=== PATIENT | male | born 1990 | race Caucasian/White ===

== ENCOUNTER 2025-05-17 10:56 | Outpatient (REF) | payer MEDICAID, SELFPAY ==
--- OUTSIDE RECORDS SUMMARY | 2025-05-17 10:40 | XMS_ITS | Encounter Summary ---
Author Organization [employer] Address [address] [facility] 7t [place] [address] Care Team Providers Care Prefinish Operator Name Role Phone Daisy Holland MD Primary Care Provider [phone]- [phone] Reason for Visit * Reason Comments Out Meds PLASTIC PROCESS TECHNICIAN Encounter Details Date Type Department Care Team ([facility] st Contact Info) Description 05/17/2025 10:40 AM EST Office Visit [facility] [address] [place], [place] [phone] Daisy Holland MD [address] [place], [place] [phone] PTSD (post-traumatic stress disorder) (Primary Dx); Recurrent major depressive disorder, in partial remission (CMS/HCC); Anxiety; Schizophrenia, unspecified type (HCC); Bipolar disorder in partial remission, most recent episode unspecified type (CMS/HCC); Opioid use disorder; Gastroesophageal reflux disease without esophagitis; Other migraine without status migrainosus, not intractable; Routine screening for STI (sexually transmitted infection); Tobacco use disorder; History of migraine headaches; Family hx of colon cancer; Other specified health status Social History Tobacco Use Types Packs/Day Years Used Date Smoking Tobacco: Every Day Cigarettes Smokeless Tobacco: Never Tobacco Cessation:Ready to Q uit: Not Asked; Counseling Given: Not Answered Alcohol Use Standard Drinks/Week Comments Never 0 (1 standard drink = 0.6 oz pur e alcohol) Sex and Gender Information Value Date Recorded Sex Assigned at Male 05/13/2022 10:14 AM EDT Legal Sex Male 10:14 AM EDT Gender Identity Male 05/17/2025 9:40 AM EST Sexual Orientation Straight 05/17/2025 9: 40 AM EST documented as of this encounter Last Filed Vital Signs Vital Sign Reading Time Taken Comments Blood Pressure 134/87 05/17/2025 10:10 AM EST Pulse 96 05/17/2025 10:10 AM EST Temperature 37.2 C (98.9 F) 05/17/2025 10:10 AM EST Respiratory Rate 20 05/17/2025 10:10 AM EST Oxygen Saturation 98% 05/17/2025 10:10 AM EST Inhaled Oxygen Concentration - - Weight 104 kg (230 lb) 05/17/2025 10:10 AM EST Height - - Body Mass Index - - documented in this encounter Progress Notes * Daisy Holland MD - 05/17/2025 10:40 AM EST Subjective Samira Luther, 34 year old man who was recently released from incarceration and needs to establishcare. Opioid Use Disorder - History of opioid use disorder - Currently enrolled in methadone program at [facility] in [place] on [address] - Staying at a sober home, [place] PTSD, Depression, Anxiety, Bipolar Disorder, Schizophrenia - History of PTSD, depression, anxiety, bipolar disorder, and schizophrenia - Receiving therapy at [facility] - No psychiatrist yet - Stable on current meds which will be prescribed by me -We discussed trying to cut down on vistaril as he is on 150mg nightly,he is open to trying this Gastroesophageal Reflux Disease (GERD) - History of GERD - Experiences heartburn - Famotidine taken nightly for heartburn - Has not taken famotidine for 3 days prior to encounter Constipation - Reports infrequent bowel movements but able to have bowel movements Tobacco Use - Smokes approximately 20 cigarettes daily - Stopped smoking while incarcerated, resumed upon release Substance Use - Denies current alcohol use - Denies current recreational drug use - History of past recreational drug use Sexual Activity - Denies current sexual partners Objective Blood pressure 134/87, pulse 96, temperature 98.9 ??F (37.2 ??C), temperature source Oral, resp. rate 20, weight 230 lb (104 kg), SpO2 98%. PTSD (post-traumatic stress disorder): - Diagnosis of PTSD confirmed. - Continue current psychiatric medications. Maintain engagement with therapist at [facility]. Recommended to be placed on waiting list for psychiatrist. Recurrent major depressive disorder, in partial remission (CMS/HCC): - Diagnosis of major depressive disorder in partial remission confirmed. - Continue Remeron 7.5 mg at night. Continue engagement with therapist. Recommended to be placed onwaiting list for psychiatrist. Anxiety: - Diagnosis of anxiety confirmed. - Continue Vistaril 150 mg nightly as needed, with option to reduce dose if tolerated. Continue engagement with therapist. Recommended to be placed on waiting list for psychiatrist. Schizophrenia, unspecified type (HCC): - Diagnosis of schizophrenia confirmed. - Continue Zyprexa 10 mg daily and 2.5 mg nightly. Recommended to take Zyprexa during the day for improved tolerability. Continue engagement with therapist. Recommended to be placed on waiting list for psychiatrist. Bipolar disorder in partial remission, most recent episode unspecified type (CMS/HCC): - Diagnosis of bipolar disorder in partial remission confirmed. - Continue current psychiatric medications as prescribed. Continue engagement with therapist. Recommended to be placed on waiting list for psychiatrist. Opioid use disorder: - Opioid use disorder managed with methadone program at [facility]. - Continue methadone maintenance therapy at current dose through [facility] program. Gastroesophageal reflux disease without esophagitis: - GERD confirmed by patient report of heartburn. - Prescribed famotidine 40 mg nightly; advised to wean off if possible but continue nightly dosing as needed. Other migraine without status migrainosus, not intractable: - Migraine diagnosis confirmed. - Prescribed ibuprofen 600 mg for migraine management; instructed to take only with food due to gastrointestinal risk. Routine screening for STI (sexually transmitted infection): - Indicated for routine STI screening; no current sexual partners reported. - Ordered laboratory tests including gonorrhea, chlamydia, hepatitis C, HIV, syphilis; urine collection for chlamydia testing. Tobacco use disorder: - Tobacco use disorder confirmed; currently smoking approximately 20 cigarettes daily; not ready toquit at this time. - Discussed readiness to quit; no cessation intervention initiated at this visit. This note was drafted using Ambient (AI) technology. The patient/patient's guardian has been informed and has consented to the use of this technology: No documented in this encounter Plan of Treatment Upcoming Encounters Date Type Department Care Team (Late st Contact Info) Description 06/17/2025 9:30 AM EST Office Visit [facility] [address] [place] [phone] Daisy Holland MD [address] [place] [address] Scheduled Orders Name Type Priority Associated Diagnoses Orde r Schedule Hepatic Function Panel Lab Routine Schizophrenia, unspecified type (HCC) Expected: 05/17/2025 (Approximate), Expires: 05/17/2026 Lipid Panel, Standard Lab Routine Schizophrenia, unspecified type (HCC) Expected: 05/17/2025 (Approximate), Expires: 05/17/2026 Basic Metabolic Panel Lab Routine Schizophrenia, unspecified type (HCC) Expected: 05/17/2025 (Approximate), Expires: 05/17/2026 Hepatitis C Antibody with Reflex to HCV, RNA, Quantitative, Real-Time PCR Lab Routine Routine screening for STI (sexually transmitted infection) Expected: 05/17/2025 (Approximate), Expires: 05/17/2026 HIV-1/2 Antigen and Antibodies, Fourth Generation, with Reflexes Lab Routine Routine screening for STI (sexually transmitted infection) Expected: 05/17/2025 (Approximate), Expires: 05/17/2026 Syphilis Screen Lab Routine Routine screening for STI (sexually transmitted infection) Expected: 05/17/2025 (Approximate), Expires: 05/17/2026 Chlamydia/N. Gonorrhoeae, PCR, Urine Lab Routine Routine screening for STI (sexually transmitted infection) Ordered: 05/17/2025 documented as of this encounter Visit Diagnoses Diagnosis PTSD (post-traumatic stress disorder)- Primary Posttraumatic stress disorder Recurrent major depressive disorder, in partial remission (CMS/HCC) Anxiety Anxiety state, unspecified Schizophrenia, unspecified type (HCC) Bipolar disorder in partial remission, most recent episode unspecified type (CMS/HCC) Opioid use disorder Gastroesophageal reflux disease without esophagitis Esophageal reflux Other migraine without status migrainosus, not intractable Routine screening for STI (sexually transmitted infection) Screening examination for venereal disease Tobacco use disorder History of migraine headaches Family hx of colon cancer Family history of malignant neoplasm of gastrointestinal tract Other specified health status documented in this encounter Care Teams Prefinish Operator Relationship Specialty Start Date End Date Daisy Holland MD [address] [place] [phone] PCP - General Family Medicine 05/17/25 documented as of this encounter
--- OUTSIDE RECORDS SUMMARY | 2025-05-17 13:20 | XMS_ITS | Encounter Summary ---
Author Organization [employer] [facility] Address 75 [facility] 7t [place] [address] Care Team Providers Care Interventional Pain Physician Name Role Phone Unavailable Primary Care Provider Unavailabl e Reason for Visit * Reason Comments RC Recovery Supports Encounter Details Date Type Department Care Team (Late st Contact Info) Description 05/16/2025 Patient Outreach [facility] [address] [place] [address] [phone] Avery Duran Recovery Supports Social History Tobacco Use Types Packs/Day Years Used Date Smoking Tobacco: Never Assessed Sex and Gender Information Value Date Recorded Sex Assigned at Male 05/13/2022 10:14 AM EDT Legal Sex Male 10:14 AM EDT Gender Identity Male 05/17/2025 9:40 AM EST Sexual Orientation Straight 05/17/2025 9: 40 AM EST documented as of this encounter Progress Notes * Avery Duran - 05/16/2025 10:54 AM EST I met with Samira today. Setting: in person at [facility] Recovery Wellness Goals worked on: Social Stability Action taken/next steps: Offered person centered recovery support and Helped obtain ID Additional comments: The kids activities coach connected with the participant to assist in obtaining a state ID. Avery Duran documented in this encounter Plan of Treatment Upcoming Encounters Date Type Department Care Team (Late st Contact Info) Description 06/17/2025 9:30 AM EST Office Visit [facility] [address] [place] [phone] Daisy Holland MD [address] [place], [place] [phone] documented as of this encounter Visit Diagnoses Not on filedocumented in this encounter
--- OUTSIDE RECORDS SUMMARY | 2025-05-17 13:20 | XMS_ITS | Encounter Summary ---
Author Organization [facility] Address [address] [facility] 7t [place] [address] Care Team Providers Care Herpetology Teacher Name Role Phone Unavailable Primary Care Provider Unavailabl e Reason for Visit * Reason Comments RC Recovery Supports Encounter Details Date Type Department Care Team (Late st Contact Info) Description 05/16/2025 Patient Outreach [facility] [address] [place] [address] [phone] Kerwin Ramires Recovery Supports Social History Tobacco Use Types Packs/Day Years Used Date Smoking Tobacco: Never Assessed Sex and Gender Information Value Date Recorded Sex Assigned at Male 05/13/2022 10:14 AM EDT Legal Sex Male 10:14 AM EDT Gender Identity Male 05/17/2025 9:40 AM EST Sexual Orientation Straight 05/17/2025 9: 40 AM EST documented as of this encounter Progress Notes * Kerwin Ramires - 05/16/2025 2:24 PM EST I met with Samira today. Setting: in person at [facility] Recovery Wellness Goals worked on: Physical Health/Mental Health and Social Stability Action taken/next steps: Offered person centered recovery support Additional comments: Kerwin Ramires documented in this encounter Plan of Treatment Upcoming Encounters Date Type Department Care Team (Late st Contact Info) Description 06/17/2025 9:30 AM EST Office Visit [facility] [address] [place] [address] [phone] Daisy Holland MD [address] [place] [address] [phone] documented as of this encounter Visit Diagnoses Not on filedocumented in this encounter
--- OUTSIDE RECORDS SUMMARY | 2025-05-17 13:21 | XMS_ITS | Clinical Summary ---
Author Organization [employer] Address [address] [facility] 7t [place] [address] Care Team Providers Care Packager Or Packer And Weigher Name Role Phone Daisy Holland MD Primary Care Provider [phone]- [phone] Allergies No known active allergies Medications methadone (Dolophine) 10 MG tabletIndication s:Opioid use disorder Take 80 mg by mouth. Active prazosin (Minipress) 1 MG capsuleIndicatio ns:Recurrent major depressive disorder, in partial remission (CMS/HCC) Take 3 capsules (3 mg) by mouth at bedtime. 90 capsule 2 5 05/17/20 26 Active famotidine (Pepcid) 40 MG tabletIndication s:Gastroesophage al reflux disease without esophagitis Take 1 tablet (40 mg) by mouth in the evening. 30 tablet 2 5 05/17/20 26 Active OLANZapine (ZyPREXA) 10 MG tabletIndication s:Recurrent major depressive disorder, in partial remission (CMS/HCC) Take 1 tablet (10 mg) by mouth Once per day. Take with 2.5mg dose for total dose of 12.5 30 tablet 11 5 05/17/20 26 Active OLANZapine (ZyPREXA) 2.5 MG tabletIndication s:Recurrent major depressive disorder, in partial remission (CMS/HCC) Take 1 tablet (2.5 mg) by mouth Once per day. Take with 10mg dose 30 tablet 11 5 05/17/20 26 Active mirtazapine (Remeron) 7.5 MG tabletIndication s:Recurrent major depressive disorder, in partial remission (CMS/HCC) Take 1 tablet (7.5 mg) by mouth at bedtime. 30 tablet 2 5 Active hydrOXYzine pamoate (Vistaril) 50 MG capsuleIndicatio ns:Recurrent major depressive disorder, in partial remission (CMS/HCC) Take 3 capsules (150 mg) by mouth if needed at bedtime for itching for up to 10 days. 90 capsule 5 05/27/20 25 Active ibuprofen 600 MG tabletIndication s:Other migraine without status migrainosus, not intractable Take 1 tablet (600 mg) by mouth every 8 (eight) hours if needed for moderate pain or fever. 30 tablet 5 06/16/20 25 Active Active Problems Problem Noted Date Diagnosed Date PTSD (post-traumatic stress disorder) 05/17/2025 Depression 05/17/2025 Anxiety 05/17/2025 Schizophrenia 05/17/2025 Bipolar disorder in partial remission 05/17/2025 Opioid use disorder 05/17/2025 Gastroesophageal reflux disease without esophagi tis 05/17/2025 Tobacco use disorder 05/17/2025 Overview (05/17/2025): -Cigg/day: 20 -Age started: 14 -Total years smokin -Pack year history: 20 Encouraged smoking cessation resources such as pharmacomtherapy, [facility] smoking cessation group, and [facility] pharmacy smoking cessation clinic Discussed USPSTF recommends annual lung cancer screening with low dose CT in people who meet the following criteria: -ages 50 to 80 years. -have a 20 pack-year smoking history. -currently smoke cigarettes or quit within the past 15 years. -LDCT: due at age 50 if has not quit in 15 years History of migraine headaches 05/17/2025 Family hx of colon cancer 05/17/2025 Other specified health status 05/17/2025 Overview (05/17/2025): -next comprehensive annual evaluation due after -eye care facilitated by [facility] encouraged to call -dental home is encouraged -sandra care proxy Encounters Date Type Department Care Team Description 05/17/2025 10:40 AM EST Office Visit [facility] [address] [place] [phone] Daisy Holland MD PTSD (post-traumatic stress disorder) (Primary Dx); Recurrent [...] of colon cancer; Other specified health status 05/17/2025 Travel 05/16/2025 Patient Outreach [facility] [address] [place] [address] [phone] Kerwin Ramires Recovery Supports 05/16/2025 Patient Outreach [facility] [address] [place] [phone] Avery Duran Recovery Supports from Last 3 Months Family History Medical History Relation Name Comments Colon cancer Father Breast cancer Mother Relation Name Status Comments Father Mother Social History Tobacco Use Types Packs/Day Years [...] Orientation Straight 05/17/2025 9: 40 AM EST Last Filed Vital Signs Vital Sign Reading [...] - - Body Mass Index - - Plan of Treatment Upcoming Encounters Date Type Department Care Team (Late st Contact Info) Description 06/17/2025 9:30 AM EST Office Visit [facility] [address] [place] [phone] Daisy Holland MD [address] [place] [address] [phone] Health Maintenance Due Date Last Done Comments Depression Screening 1990 HIV Screening 1990 Lipid Panel 1990 SDOH Screening 1990 Disability Screening 1990 Alcohol/Substance Use Screening 2002 Family Planning (PISQ) 2005 HPV Vaccines (1 - Male 3-dos e series) 2005 Hepatitis C Screening 2008 Hepatitis B Vaccines (1 of 3 - 19+ 3-dose series) 2009 Pneumococcal Vaccine: Pediatrics (0 to 5 Years) and At-Risk Patients (6 to 49) Years (1 of 2 - PCV) 2009 DTaP/Tdap/Td Vaccines (2 - T d or Tdap) 12/02/2023 12/01/2013, 12/21/2012 COVID-19 Vaccine (3 - 2024-2 6 season) 2025 09/01/2020, 08/03/2020 Influenza Vaccine (#1) 2025 5, 07/21/2012 Tobacco Screening 05/17/2026 05/17/2025 Zoster Vaccines (1 of 2) 2040 RSV Patients and Patients Aged 60 years or older (1 - 1-dose 75+ series) 2065 Hepatitis A Vaccines Aged Out 12/01/2013, 12/21/2012 No longer eligible based on patient's age to complete this topic HIB Vaccines Aged Out No longer eligi ble based on patient's age to complete this topic IPV Vaccines Aged Out No longer eligi ble based on patient's age to complete this topic Meningococcal B Vaccine Aged Out No l onger eligible based on patient's age to complete this topic Meningococcal Vaccine Aged Out No kate tomer eligible based on patient's age to complete this topic RSV under 20 months Aged Out No longe r eligible based on patient's age to complete this topic Rotavirus Vaccines Aged Out No longer eligible based on patient's age to complete this topic [place] [place] [address] [id number] Care Teams Packager Or Packer And Weigher Relationship Specialty Start Date End Date [place], MD Daisy [address] [place] [phone] PCP - General Family Medicine 05/17/25
--- OUTSIDE RECORDS SUMMARY | 2025-05-17 13:21 | XMS_ITS | Encounter Summary ---
Author Organization [employer] [facility] Address [address] [facility] 7t [place] [address] Care Team Providers Care Bread Jockey Name Role Phone Daisy Holland MD Primary Care Provider +1- [phone] Encounter Details Date Type Department Care Team (Latest Contact Info) Description 05/17/2025 Travel Social History Tobacco Use Types Packs/Day Years Used Date Smoking Tobacco: Every Day Cigarettes Smokeless Tobacco: Never Alcohol Use Standard Drinks/Week Comments Never 0 (1 standard drink = 0.6 oz pur e alcohol) Sex and Gender Information Value Date Recorded Sex Assigned at Male 05/13/2022 10:14 AM EDT Legal Sex Male 10:14 AM EDT Gender Identity Male 05/17/2025 9:40 AM EST Sexual Orientation Straight 05/17/2025 9: 40 AM EST documented as of this encounter Plan of Treatment Upcoming Encounters Date Type Department Care Team (Late st Contact Info) Description 06/17/2025 9:30 AM EST Office Visit [facility] [address] [place] [address] Daisy Holland MD [address] [place] [address] documented as of this encounter Visit Diagnoses Not on filedocumented in this encounter Care Teams Bread Jockey Relationship Specialty Start Date End Date Daisy Holland MD [address] [place], [place] [phone] PCP - General Family Medicine 05/17/25 documented as of this encounter
--- OUTSIDE RECORDS SUMMARY | 2025-05-17 13:21 | XMS_ITS | Clinical Summary ---
Author Organization [facility] Address [address] [place] [address] Phone Care Team Providers Care Tool Repair Technician Name Role Phone Physician, Pcp Unknown Primary Care Provider Tatum vailable Allergies No known active allergies Social History Tobacco Use Types Packs/Day Years Used Date Smoking Tobacco: Never Assessed Sex and Gender Information Value Date Recorded Sex Assigned at Not on file Legal Sex Male 2:16 AM EST Gender Identity Not on file Sexual Orientation Not on file Last Filed Vital Signs Vital Sign Reading Time Taken Comments Blood Pressure 145/95 10/27/2024 11:40 PM EDT Pulse 94 10/27/2024 11:40 PM EDT Temperature 36.6 C (97.9 F) 10/27/2024 11:40 PM EDT Respiratory Rate 16 10/27/2024 11:40 PM EDT Oxygen Saturation 97% 10/27/2024 11:40 PM EDT Inhaled Oxygen Concentration - - Weight 77.1 kg (170 lb) 10/27/2024 11:40 PM EDT Height 175.3 cm (5' 9 ) 10/27/2024 11:40 PM EDT Body Mass Index 25.1 10/27/2024 11:40 PM EDT Plan of Treatment Health Maintenance Due Date Last Done Comments Hepatitis B Vaccines (1 of 3 - 19+ 3-dose series) 2009 HPV Vaccines (1 - 3-dose SCD M series) 2017 HIV Screening 08/12/2023 Hepatitis C Screening 08/12/2023 Social Influencers of Health Screening 08/12/2023 DTaP,Tdap,and Td Vaccines (3 - Td or Tdap) 12/02/2023 12/01/2013, 12/21/2012 Depression Screening 07/14/2024 COVID-19 Vaccine ( - 2024-2 6 season) 2025 09/01/2020, 08/03/2020 Influenza Vaccine (#1) 2025 5, 07/21/2012 RSV Immunization Adult Patients (1 - 1-dose 75+ series) 2065 Hepatitis A Vaccines Aged Out 12/01/2013, 12/21/2012 No longer eligible based on patient's age to complete this topic HIB Vaccines Aged Out No longer eligi ble based on patient's age to complete this topic IPV Vaccines Aged Out No longer eligi ble based on patient's age to complete this topic MMR Vaccines Aged Out No longer eligi ble based on patient's age to complete this topic Meningococcal ACWY Vaccine Aged Out N o longer eligible based on patient's age to complete this topic Meningococcal B Vaccine Aged Out No l onger eligible based on patient's age to complete this topic Pneumococcal Vaccine: Pediatrics (0 to 5 Years) and At-Risk Patients (6 to 49 Years) Aged Out No longer eligible b ased on patient's age to complete this topic RSV Immunization Patients Under 20 months Aged Out No longer eligible b ased on patient's age to complete this topic Varicella Vaccines Aged Out No longer eligible based on patient's age to complete this topic Insurance MEDICAID - [place] Care Teams Tool Repair Technician Relationship Specialty Start Date End Date Physician, Pcp Unknown PCP - General 10/28/24
[2025-05-17 13:39] LABS: Alanine Aminotransferase 44 U/L (0-40); Albumin Level 4.5 g/dL (3.5-5.0); Alkaline Phosphatase 135 U/L (39-117); Anion Gap 10 (12-20); Aspartate Amino Transferase 39 U/L (5-37); Blood Urea Nitrogen 19 mg/dL (9-16); Calcium 9.5 mg/dL (8.4-10.2); Carbon Dioxide 24 mmol/L (22-29); Chloride 110 mmol/L (96-108); Cholesterol 248 mg/dL (<200); Estimated Glomerular Filt Rate > 60; HDL Cholesterol 44 mg/dL (>40); Potassium 4.5 mmol/L (3.3-5.1); Sodium 139 mmol/L (135-145); Total Protein 7.3 g/dL (6.5-8.0); Triglycerides 221 mg/dL (<150)
[2025-05-17 16:25] LABS: CT PCR Urine NOT DETECTED (Not Detect.); NG PCR Urine NOT DETECTED (Not Detect.)
[2025-05-18 10:28] LABS: HIV Num 1 0.05 S/CO (0.00-0.99); ~HepC Num1 0.09 S/CO (0.00-0.79); ~Hepatitis C Antibody Nonreactive (Nonreactive)
[2025-05-18 10:46] LABS: Syphilis Screen Nonreactive (Nonreactive)
== END 2025-05-17 10:57 | disposition home or self-care (01) ==
LOC: HO.HHCL 10:56
PROVIDERS: Family Medicine; PCP Family Medicine; Visit Provider Family Medicine
DX: Z11.4 Encounter for screening for human immunodeficiency virus [HIV] (principal); Z20.2 Contact with and (suspected) exposure to infections with a predominantly sexual mode of transmission; Z11.59 Encounter for screening for other viral diseases; F20.9 Schizophrenia, unspecified
CPT/HCPCS: 80048; 80061; 80076; 86780; 86803; 87389; 87491; 87591